=== PATIENT | female | born 1995 | race Caucasian/White ===

== ENCOUNTER 2016-09-29 05:28 | Inpatient (IN) ==
[2016-09-29] MEDS ORDERED: ONDANSETRON 4 MG/2 ML VIAL IV PRN ×2 (05:47→17:22)
[2016-09-29] MEDS ORDERED: MEPERIDINE 50 MG/1 ML VIAL IV PRN (05:47)
[2016-09-29 06:05] LABS: Basophils % 0.3 % (0.0-0.8); Eosinophils # 0.1 10*3/uL (0.0-0.87); Eosinophils % 1.4 % (0.00-10.9); Hematocrit 30.9 VOL% (35.7-47.0); Hemoglobin 10.3 GM/DL (12.0-16.0); Immature Granulocytes % 0.6 %; Immature Granulocytes Absolute 0.06 #; Lymphocytes # 2.7 10*3/uL (1.4-4.0); Lymphocytes % 27.5 % (21.3-54.2); Mean Corpuscular HGB Conc 33.3 GM/DL (32-36); Mean Corpuscular Hemoglobin 29 PG (27-34); Mean Corpuscular Volume 85.8 FL (87-102); Mean Platelet Volume 10.5 FL (9.6-12.0); Monocytes # 0.5 10*3/uL (0.11-0.8); Monocytes % 5.3 % (1.7-12.7); Neutrophils # 6.3 10*3/uL (1.4-7.4); Neutrophils % 64.9 % (38.7-73.9); Platelet Count 238 T/CUMM (130-400); White Blood Count 9.7 T/CUMM (4-12)
[2016-09-29] MEDS: LACTATED RINGERS 1,000 ML IV SCH ×2 (06:10→10:27)
[2016-09-29 06:34] LABS: Alanine Aminotransferase 15 U/L (13-56); Albumin 2.6 G/DL (3.4-5.0); Alkaline Phosphatase 207 U/L (45-117); Aspartate Amino Transferase 16 U/L (0-37); Bilirubin,Total < 0.39 MG/DL (0.2-1.0)
[2016-09-29 06:35] LABS: Blood Urea Nitrogen 9 MG/DL (7-18); Glucose 95 MG/DL (74-106); Osmolality,Calculated 277.4 MOS/KG (273-304); Potassium 3.9 MMOL/L (3.5-5.1); Sodium 140 MMOL/L (136-145)
[2016-09-29] MEDS: OXYTOCIN/LR 20 UNIT/1,000 ML BAG IV SCH ×2 (06:40→17:19)
[2016-09-29] MEDS ORDERED: FAMOTIDINE 20 MG/2 ML VIAL IV ONE (11:11)
[2016-09-29] MEDS ORDERED: LACTATED RINGERS 1,000 ML IV ONE (11:11)
[2016-09-29] MEDS ORDERED: CITRIC ACID/SODIUM CITRATE 30 ML UDCUP PO ONE (11:11)
[2016-09-29] MEDS ORDERED: PROMETHAZINE 25 MG/1 ML VIAL IM ONE (11:12)
[2016-09-29] MEDS ORDERED: hydrOXYzine HCL 25 MG/1 ML VIAL IM PRN (11:12)
[2016-09-29] MEDS ORDERED: ePHEDrine 50 MG/ML AMP IV PRN (11:12)
[2016-09-29] MEDS ORDERED: fentaNYL 2 MCG/ROPIV 0.2% EPID 150 ML EPIDURAL SCH (11:12)
[2016-09-29] MEDS ORDERED: diphenhydrAMINE 50 MG/1 ML VIAL IV PRN ×2 (11:12)
--- NOTE | 2016-09-29 13:01 | Event Note ---
AROM clear fluid at ~8;20 am today pelvic at that time was 2/50/-3 pelvic at ~12:20 pm was 4/70/-3 and pt has had an epidural FHTs reassuring cat 1
[2016-09-29 13:29] LABS: Apearance,Urine CLEAR (Clear); Bilirubin,Urine Negative (Negative); Blood, Urine Small mg/dL (Negative); Glucose,Urine (UA) Negative (Negative); Ketones,Urine Negative (Negative); Mucus,Urine Occasional /LPF (Occasional); Nitrite,Urine Negative (Negative); Protein,Urine Negative; RBC,Urine 2 /HPF (0-4); Urine Color Straw (Yellow); Urine Urobilinogen < 2.0 EU/DL (0.2-1.0); WBC,Urine 1 /HPF (0-6)
[2016-09-29] MEDS ORDERED: IBUPROFEN 800 MG TABLET PO PRN (16:48)
--- NOTE | 2016-09-29 17:02 | Anesthesia Post-Op ---
Anesthesia Post OP - Post Ansesthetic Evaluation Patient seen in post op: Yes Resp: within normal limits CV: within normal limits Mental: within normal limits Temp: within normal limits [id number]: within normal limits Nausea and Vomiting: within normal limits Pain: within normal limits
[2016-09-29] MEDS ORDERED: DIPH/TET/ACEL PERT BOOSTER VACCINE 0.5 ML VIAL IM ONE (17:22)
[2016-09-29] MEDS ORDERED: OXYTOCIN/LR 20 UNIT/1,000 ML BAG IV ONE (17:22)
[2016-09-29] MEDS ORDERED: WITCH HAZEL PADS 100/JAR TOP PRN (17:22)
[2016-09-29] MEDS ORDERED: ACETAMINOPHEN 325 MG TABLET PO PRN (17:22)
[2016-09-29] MEDS ORDERED: BENZOCAINE 20%/MENTHOL 0.5% SPRAY 56 GM CAN TOP PRN (17:22)
[2016-09-29] MEDS ORDERED: MEASLES/MUMPS/RUBELLA VACCINE 0.5 ML VIAL SUBCUT ONE (17:22)
[2016-09-29] MEDS ORDERED: BISACODYL 10 MG SUPP RECTAL PRN (17:22)
[2016-09-29] MEDS ORDERED: LANOLIN 50% CREAM 0.3 OZ TUBE TOP PRN (17:22)
[2016-09-29] MEDS ORDERED: RHO(D) IMMUNE GLOBULIN 300 MCG SYRINGE IM ONE (17:22)
[2016-09-29] MEDS ORDERED: HYDROCORTISONE 2.5% RECTAL CREAM 30 GM TUBE TOP PRN (17:22)
--- NOTE | 2016-09-29 17:27 | Operative Note ---
Date of procedure: 09/29/16 Pre-op diagnosis: iup at 39 week Post-op diagnosis: same Procedure: The patient progressed and delivered a viable infant female with Apgars of 9 and 9 over a right medial lateral episiotomy. weight of the baby 6pounds 7 ounces. The placenta delivered spontaneously shortly thereafter. The episiotomy was repaired in the usual fashion with 3-0 Vicryl. No complications. Sponge lap and instrument counts were correct 3. Anesthesia: epidural Surgeon / Physician: Mitra Gallagher Estimated blood loss: other (200) Specimens: none sent Condition: stable Disposition: floor Results - Labs CBC & BMP: 09/29/16 05:59 09/29/16 05:59
[2016-09-29] MEDS: oxyCODONE/ACETAMINOPHEN 5-325 MG TABLET PO PRN (18:00)
[2016-09-29] MEDS: DOCUSATE SODIUM 100 MG CAPSULE PO SCH (21:34)
[2016-09-30] MEDS: oxyCODONE/ACETAMINOPHEN 5-325 MG TABLET PO PRN ×4 (00:19→20:30)
[2016-09-30] MEDS: IBUPROFEN 800 MG TABLET PO PRN ×2 (00:19→17:25)
[2016-09-30] MEDS: LACTATED RINGERS 1,000 ML IV SCH (00:39)
[2016-09-30] MEDS ORDERED: diphenhydrAMINE CAP 25 MG CAPSULE ONE (04:40)
[2016-09-30 06:47] LABS: Basophils % 0.3 % (0.0-0.8); Eosinophils # 0.1 10*3/uL (0.0-0.87); Eosinophils % 1.1 % (0.00-10.9); Hematocrit 28.2 VOL% (35.7-47.0); Hemoglobin 9.3 GM/DL (12.0-16.0); Immature Granulocytes % 0.8 %; Immature Granulocytes Absolute 0.09 #; Lymphocytes # 3.5 10*3/uL (1.4-4.0); Lymphocytes % 29.7 % (21.3-54.2); Mean Corpuscular Hemoglobin 28 PG (27-34); Mean Corpuscular Volume 85.2 FL (87-102); Mean Platelet Volume 10.6 FL (9.6-12.0); Monocytes # 0.7 10*3/uL (0.11-0.8); Monocytes % 6.3 % (1.7-12.7); Neutrophils # 7.3 10*3/uL (1.4-7.4); Neutrophils % 61.8 % (38.7-73.9); Platelet Count 233 T/CUMM (130-400); Red Blood Count 3.31 MC/CUMM (3.8-5.5); Red Cell Distribution Width 13.2 % (9.3-17.3); White Blood Count 11.8 T/CUMM (4-12)
--- NOTE | 2016-09-30 08:40 | OB/GYN Progress Note ---
Assessment and Plan (1) Vaginal delivery Status: Acute Assessment and plan: PPD#1 s/p SAVD. continue routine PP care Current Visit: Yes PRODUCE TEAM LEAD - PN: Subj Interval history: the pt says her bleeding and pain are under control Exam PRODUCE TEAM LEAD - Constitutional Vitals: Vital Signs Temp Pulse Resp BP Pulse Ox 09/30/16 07:28 97.6 F 78 20 129/70 98 09/30/16 04:00 96.2 F L 69 20 94/69 99 09/30/16 00:00 97.9 F 76 18 115/59 99 09/29/16 19:45 97.7 F 71 18 130/81 99 09/29/16 18:45 73 18 140/76 97 09/29/16 18:15 75 20 112/69 99 09/29/16 17:45 98.4 F 83 20 110/75 99 09/29/16 16:00 99.2 F 80 18 124/58 09/29/16 12:00 60 20 121/67 General appearance: normal weight, no acute distress - Respiratory Respiratory exam: Absent: accessory muscle use - Cardiovascular Cardiovascular exam: Present: regular rate and rhythm - GI/Abdominal GI/Abdominal exam: Absent: guarding, tenderness, rebound - Extremities Exam Extremities exam: Absent: calf tenderness - Neurological Exam Neurological exam: Present: alert, oriented X3 - Psychiatric Psychiatric exam: Present: normal affect, normal mood Results - Labs CBC & BMP: 09/30/16 06:37 09/29/16 05:59
[2016-09-30] MEDS: DOCUSATE SODIUM 100 MG CAPSULE PO SCH ×2 (09:21→20:31)
[2016-10-01] MEDS: oxyCODONE/ACETAMINOPHEN 5-325 MG TABLET PO PRN ×2 (03:19→09:04)
[2016-10-01] MEDS: IBUPROFEN 800 MG TABLET PO PRN (03:19)
[2016-10-01] MEDS: DOCUSATE SODIUM 100 MG CAPSULE PO SCH (09:03)
--- NOTE | 2016-10-01 09:25 | Discharge Summary ---
Hospital Course - Hospital Course Hospital Course: The pt was admitted for induction at 39 weeks and delivered a viable girl via SAVD without complications. Her hospital course was uneventful and she was ready to go home on PPD #2. Diagnosis - Discharge Diagnosis (1) Vaginal delivery Status: Acute Specialty Discharge - Follow Up or Referrals Follow up with: Mitra Gallagher MD [Physician] - (6 weeks) Discharge Plan - Discharge Data Disposition: Disch To Home/Self Care Condition at Discharge: Stable Discharge Diet: advance to your usual diet Activity: resume usual activities as tolerated Hygiene: may shower Driving: no restrictions Contact your physician if you experience:: fever over 101, Difficulty voiding, Redness or swelling, Nausea/Vomiting, Shortness of breath, Bleeding, pain uncontrolled by pain medications - Follow Up or Referral - Forms/Instructions Instructions: Perineal Care (DC), Vaginal Delivery (DC), Bleeding (DC) Exam - Constitutional Vitals: Period Temp Pulse Resp BP Sys/Chen Pulse Ox Last 24 Hr 96.9 F-98.2 F 69-94 18-20 107-126/66-78 98-100 General appearance: normal weight, no acute distress - Respiratory Respiratory exam: Absent: accessory muscle use - GI/Abdominal GI/Abdominal exam: Absent: guarding, tenderness, rebound - Extremities Exam Extremities exam: Absent: calf tenderness - Neurological Exam Neurological exam: Present: alert, oriented X3 - Skin Skin exam: Present: normal color, warm DS: Provider Date of admission: 09/29/16 05:35 Primary care physician: . No PCP Attending physician on admission: Mitra Naylor- Consults: 09/29/16 05:47 Consult to Anesthesiology [CONS] Routine Consulting Provider: Reason for Anesthesiology: Epidural Consult Comment: Epidural for pain managment 09/29/16 17:22 Consult to Curriculum Manager [CONS] Routine Consult Curriculum Manager: Breast Feeding Discharging clinician: Mitra Naylor- Expected date of discharge: 10/01/16
--- NOTE | 2016-10-01 12:22 | Pathology Report from [facility] ---
[facility] ACCESSION # : [id number] PATIENT NAME : Jaky Golden ORDERING DR : Mitra Jenkins MD CLINICAL HX: IUP @ 39 wks gestation, term vag delivery POST-OP DX: Same SPECIMEN INFO: Placenta GROSS DESCRIPTION: Received fresh labeled JAKY GOLDEN is a 447 gm placenta measuring 18.7 x 17.6 x up to 3 cm. The membranes are pink bee with some adherent clotted blood present. The umbilical cord is pericentrally inserted, contains three vessels and measures 37.4 cm. The surface is blue pink with scattered areas of subchorionic fibrin measuring up to 1.4 cm. The maternal surface is hemorrhagic with mildly disrupted cotyledons and adherent clotted blood. Sectioning reveals a central area of fibrin measuring 0.8 cm. Sections submitted A- membranes and cord, B- and maternal surfaces. DIAGNOSIS FOR JAKY GOLDEN: PLACENTA, MEMBRANES, UMBILICAL CORD: Focal placental infarction with dystrophic calcification. Tri-vessel umbilical cord, pericentrally inserted. Membranes with focal chronic inflammation and attached blood. COLLECTED DATE: 09/30/2016 [facility] REPORT DATE: 10/01/2016 ELECTRONICALLY SIGNED BY: Linda Heredia M.D. 10/01/2016 - 9:57:13 XANDER
[2016-10-01 12:42] VITALS: BP 121/70
== END 2016-10-01 11:40 | disposition home or self-care (01) | DRG 560 ==
LOC: N.LDOUT 05:28 → N.LD 05:32 → N.OB 17:43
PROVIDERS: ADMIT Obstetrics & Gynecology; ATTEND Obstetrics & Gynecology